=== PATIENT | female | born 1995 | race Caucasian/White ===

== ENCOUNTER 2018-08-09 16:15 | Emergency (ER) | payer OTHER ==
[2018-08-09 16:28] VITALS: BP 125/73
--- NOTE | 2018-08-09 16:47 | ED Physician Documentation ---
History of Present Illness - Stated complaint Stated Complaint: SUTURE REMOVAL - Chief complaint Chief Complaint: General - History obtained from History obtained from: Patient - History of Present Illness Timing: Other (She has a laceration on the left palm about 2 weeks ago and is here for suture removal. It is irritating her. No fevers.) Review of Systems Constitutional: reports: Reviewed and negative Throat: reports: Reviewed and negative Cardiac: reports: Reviewed and negative PD PAST MEDICAL HISTORY - Present Medications Home Medications: Ambulatory Orders Medication Instructions Recorded Confirmed No Known Home Medications 08/09/18 08/09/18 - Allergies Allergies/Adverse Reactions: Allergies Allergy/AdvReac Type Severity Reaction Status Date / Time No Known Drug Allergies Allergy Verified 08/09/18 16:27 PD ED PE NORMAL - Vitals Vital signs reviewed: Yes - General General: Alert and oriented X 3, No acute distress - Extremities Extremities: Other (There is a healing laceration measuring about 1 cm on the thenar musculature of the palmar side of the left palm without signs of infection. On my evaluation the sutures have already been removed) Results - Vitals Vitals: Vital Signs - 24 hr 08/09/18 16:23 Temperature 36.6 C Heart Rate 77 Respiratory 20 Rate Blood Pressure 125/73 O2 Saturation 100 Oxygen O2 Source Room air Departure - Departure Disposition: 01 Home, Self Care Clinical Impression: Visit for suture removal Condition: Good Record reviewed to determine appropriate education?: Yes Instructions: ED Wound Check Sutr Remove No Infec
== END 2018-08-09 16:50 | disposition home or self-care (01) ==
LOC: ED 16:15
DX: S61.412D Laceration without foreign body of left hand, subsequent encounter (principal)
CPT/HCPCS: 99282

== ENCOUNTER 2018-10-02 13:07 | Emergency (ER) | payer OTHER ==
[2018-10-02 13:12] VITALS: BP 119/80
[2018-10-02] MEDS ORDERED: CHERRY SYRUP 10 ML UDC PO ONE (13:22)
[2018-10-02] MEDS ORDERED: DEXAMETHASONE 10 MG/ML VIAL PO STA (13:22)
--- NOTE | 2018-10-02 13:26 | ED Physician Documentation ---
PD HPI BACK PAIN - Stated complaint Stated Complaint: BACK PX - Chief complaint Chief Complaint: Back Pain - History obtained from History obtained from: Patient - History of Present Illness Timing - onset: How many months ago (6) Timing - duration: Days (3) Timing - details: Gradual onset, Still present, Waxing and waning Location: Lower, Right Quality: Pain, Spasm, Sharp, Similar to prior episodes Associated symptoms: No: Fever, Weakness, Numbness, Incontinent of urine, Unable to urinate, Hematuria, Incontinent of stool Improves with: Rest, Ice, Position Similar symptoms before: No diagnosis Recently seen: Not recently seen - Additional information Additional information: previously well 23-year-old female has been having a problem with some low back pain especially to the right side radiating down the right leg for the past 6 months. She has had times when the pain has been worse and times and the pain is been less. She now has a pain that is worse than her usual. She has come to the emergency department for treatment. She denies any lifting of excessively heavy objects or carrying of heavy objects of any length of time she does do some mopping and sweeping at home and this is about the only physical exertion that she does in excess. 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 Review of Systems Constitutional: denies: Fever, Chills Eyes: denies: Decreased vision Ears: denies: Ear pain Nose: denies: Rhinorrhea / runny nose, Congestion Throat: denies: Sore throat Cardiac: denies: Chest pain / pressure, Palpitations Respiratory: denies: Dyspnea, Cough GI: denies: Abdominal Pain, Nausea, Vomiting : denies: Dysuria, Frequency Skin: denies: Rash Musculoskeletal: reports: Back pain, Extremity pain. denies: Neck pain, Joint pain Neurologic: denies: Generalized weakness, Focal weakness, Numbness PD PAST MEDICAL HISTORY - Present Medications Home Medications: Ambulatory Orders Medication Instructions Recorded Confirmed Cyclobenzaprine [Flexeril] 10 mg PO TID PRN #20 tablet 10/02/18 Hydrocodone/Acetaminophen 1 - 2 each PO Q6H PRN #14 tablet 10/02/18 [Hydrocodon-Acetaminophen 5-325] - Allergies Allergies/Adverse Reactions: Allergies Allergy/AdvReac Type Severity Reaction Status Date / Time No Known Drug Allergies Allergy Verified 10/02/18 13:12 - Social History Does the pt smoke?: No Smoking Status: Never smoker PD ED PE NORMAL - Vitals Vital signs reviewed: Yes (normal ) - General General: Alert and oriented X 3, No acute distress, Well developed/nourished - HEENT HEENT: Atraumatic, PERRL, EOMI - Respiratory Respiratory: No respiratory distress - Back Back: No CVA TTP, No spinal TTP, Other (There is paraspinous muscle tenderness to the lower lumbar area at the L4/5 level on the right. 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, No motor deficit, No sensory deficit, Normal speech Eye Opening: Spontaneous Motor: Obeys Commands Verbal: Oriented GCS Score: 15 - Psych Psych: Normal mood, Normal affect Results - Vitals Vitals: Vital Signs - 24 hr 10/02/18 13:10 Temperature 36.4 C L Heart Rate 85 Respiratory 20 Rate Blood Pressure 119/80 O2 Saturation 100 Oxygen O2 Source Room air PD MEDICAL DECISION MAKING - ED course Complexity details: considered differential, d/w patient ED course: 23-year-old female with a history of sciatica is administered dexamethasone 10 mg orally we will place her on some pain medication & muscle relaxant and she will follow-up with her primary. Departure - Departure Disposition: 01 Home, Self Care Clinical Impression: Sciatica Qualifiers: Laterality: right Qualified Code(s): M54.31 - Sciatica, right side Condition: Stable Instructions: ED Sciatica Follow-Up: Jason Rebolledo ARNP [Primary Care Provider] - Prescriptions: Cyclobenzaprine [Flexeril] 10 mg PO TID PRN #20 tablet PRN Reason: Spasms Hydrocodone/Acetaminophen [Hydrocodon-Acetaminophen 5-325] 1 - 2 each PO Q6H PRN #14 tablet PRN Reason: pain
== END 2018-10-02 13:42 | disposition home or self-care (01) ==
LOC: ED 13:07
DX: M54.41 Lumbago with sciatica, right side (principal)
CPT/HCPCS: 99283; A9270

== ENCOUNTER 2018-12-08 19:01 | Emergency (ER) | payer OTHER ==
[2018-12-08 19:16] VITALS: BP 120/71
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
== END 2018-12-08 19:30 | disposition home or self-care (01) ==
LOC: ED 19:01
DX: T75.4XXA Electrocution, initial encounter (principal); W86.8XXA Exposure to other electric current, initial encounter; R07.89 Other chest pain
CPT/HCPCS: 93005; 99282; 99283